=== PATIENT | female | born 1985 | race Caucasian/White ===

== ENCOUNTER → 2022-01-20 | Outpatient (CLI) | payer OTHER ==
[2022-01-20 15:24] LABS: MEAN CORPUSCULAR HEMOGLOBIN 22.4 pg (27.0-33.0); MEAN CORPUSCULAR HGB CONC 29.4 g/dl (32.0-36.5); MEAN CORPUSCULAR VOLUME 76.1 fl (80.0-96.0); PLATELET COUNT, AUTOMATED 355 10^3/uL (150-450); RED BLOOD COUNT 4.47 10^6/uL (4.00-5.40); WHITE BLOOD COUNT 9.2 10^3/uL (4.0-10.0)
[2022-01-20 15:50] LABS: ALT/SGPT 13 U/L (12-78); BILIRUBIN,TOTAL 0.2 MG/DL (0.2-1.0); CREATININE FOR GFR 0.49 MG/DL (0.55-1.30); GLOMERULAR FILTRATION RATE > 60.0 (>60); LDH LACTATE DEHYDROGENASE 130 U/L (84-246); URIC ACID 2.8 MG/DL (2.6-6.0)
[2022-01-20 16:41] LABS: HEPATITIS C VIRUS ABY INDEX 0.2 INDEX (<0.8); HIV 1&2 SCREEN CENTAUR NEGATIVE (NEGATIVE)
[2022-01-20 17:03] LABS: GC DNA AMPLIFICATION NEGATIVE (NEGATIVE)
[2022-01-20 17:22] LABS: TOTAL PROTEIN,RANDOM URINE 18.4 MG/DL (0.0-12.0)
== END ==
LOC: M PLALAB 12:22
PROVIDERS: ATTEND Advanced Practice Midwife
DX: Z34.91 Encounter for supervision of normal pregnancy, unspecified, first trimester (principal); O09.521 Supervision of elderly multigravida, first trimester

== ENCOUNTER → 2022-03-23 | Outpatient (CLI) | payer OTHER | LOC: M WHC 11:35 | PROVIDERS: ATTEND Obstetrics & Gynecology | DX: O09.522 Supervision of elderly multigravida, second trimester (principal); Z3A.20 20 weeks gestation of pregnancy ==

== ENCOUNTER → 2022-06-08 | Outpatient (CLI) | payer OTHER ==
[2022-06-08 13:21] LABS: HEMATOCRIT 28.5 % (36.0-47.0); HEMOGLOBIN 7.7 g/dl (12.0-15.5); MEAN CORPUSCULAR HEMOGLOBIN 19.2 pg (27.0-33.0); MEAN CORPUSCULAR VOLUME 71.1 fl (80.0-96.0); PLATELET COUNT, AUTOMATED 425 10^3/uL (150-450); RED BLOOD COUNT 4.01 10^6/uL (4.00-5.40); WHITE BLOOD COUNT 14.3 10^3/uL (4.0-10.0)
== END ==
LOC: M PLALAB 10:22
PROVIDERS: ATTEND Obstetrics & Gynecology
DX: O09.529 Supervision of elderly multigravida, unspecified trimester (principal)

== ENCOUNTER 2022-06-30 08:32 | Outpatient (CLI) | payer OTHER ==
[~2022-06-30] VITALS: Ht 167.6 cm; Wt 100.0 kg
[~2022-06-30 08:32] MED LIST: IRON SUCROSE 500 MG in NS 250 ML OVER 4 HRS IV ONE
[2022-06-30 08:35] VITALS: BP 167/79
[2022-06-30] MEDS ORDERED: ECOT81TA5 PO (09:14)
[2022-06-30] MEDS ORDERED: PREN1CHW6 PO (09:14)
[2022-06-30] MEDS ORDERED: FIOR1CAP PO (09:14)
[2022-06-30 10:00] VITALS: BP 131/78
[2022-06-30 10:20] VITALS: BP 168/88
== END 2022-06-30 10:20 | disposition home or self-care (01) ==
LOC: M INFU 08:32
PROVIDERS: ATTEND Obstetrics & Gynecology
DX: D64.9 Anemia, unspecified (principal)
CPT/HCPCS: 96365; J1756

== ENCOUNTER 2022-06-30 10:25 | Outpatient (CLI) | payer OTHER ==
[~2022-06-30 10:25] MED LIST changes: +ECOT81TA5 PO; +FIOR1CAP PO; -IRON SUCROSE 500 MG in NS 250 ML OVER 4 HRS IV ONE; +PREN1CHW6 PO
[2022-06-30 10:54] VITALS: BP 209/115
[2022-06-30 10:56] VITALS: BP 170/84
[2022-06-30 11:11] VITALS: BP 150/83
[2022-06-30 11:27] VITALS: BP 132/76
[2022-06-30 11:41] VITALS: BP 135/73
[2022-06-30 12:02] LABS: HEMATOCRIT 24.8 % (36.0-47.0); MEAN CORPUSCULAR HEMOGLOBIN 18.9 pg (27.0-33.0); MEAN CORPUSCULAR HGB CONC 27.8 g/dl (32.0-36.5); MEAN CORPUSCULAR VOLUME 67.9 fl (80.0-96.0); PLATELET COUNT, AUTOMATED 341 10^3/uL (150-450); RED BLOOD COUNT 3.65 10^6/uL (4.00-5.40)
[2022-06-30 12:11] LABS: HEMOGLOBIN 6.9 g/dl (12.0-15.5)
[2022-06-30 12:25] LABS: ALT/SGPT 10 U/L (12-78); BILIRUBIN,TOTAL 0.3 MG/DL (0.2-1.0); CREATININE FOR GFR 0.45 MG/DL (0.55-1.30); GLOMERULAR FILTRATION RATE > 60.0 (>60); LDH LACTATE DEHYDROGENASE 162 U/L (84-246)
[2022-06-30 12:39] LABS: TOTAL PROTEIN,RANDOM URINE 14.7 MG/DL (0.0-12.0)
== END 2022-06-30 13:00 | disposition home or self-care (01) ==
LOC: M LDO 10:25
PROVIDERS: ATTEND Advanced Practice Midwife
DX: O60.03 Preterm labor without delivery, third trimester (principal); O99.013 Anemia complicating pregnancy, third trimester; D50.9 Iron deficiency anemia, unspecified; O09.513 Supervision of elderly primigravida, third trimester; Z3A.34 34 weeks gestation of pregnancy
CPT/HCPCS: 36415; 59025; 82247; 82565; 82570; 83615; 84156; 84450; 84460; 84550; 85027; G0378; G0463

== ENCOUNTER 2022-07-02 14:25 | Outpatient (CLI) | payer OTHER ==
[~2022-07-02] VITALS: Ht 167.6 cm; Wt 100.0 kg
[2022-07-02] VITALS (9 sets, daily range): BP systolic 120–133; BP diastolic 60–77
[~2022-07-02 14:25] MED LIST changes: +ACETAMINOPHEN 500 MG TAB PO PRN; +diphenhydrAMINE 25MG CAP PO PRN
[2022-07-02 22:19] LABS: HEMATOCRIT 29.4 % (36.0-47.0); HEMOGLOBIN 8.4 g/dl (12.0-15.5); MEAN CORPUSCULAR HEMOGLOBIN 20.2 pg (27.0-33.0); MEAN CORPUSCULAR HGB CONC 28.6 g/dl (32.0-36.5); MEAN CORPUSCULAR VOLUME 70.8 fl (80.0-96.0); PLATELET COUNT, AUTOMATED 352 10^3/uL (150-450); RED BLOOD COUNT 4.15 10^6/uL (4.00-5.40); WHITE BLOOD COUNT 15.4 10^3/uL (4.0-10.0)
== END 2022-07-02 22:32 ==
LOC: M INFU 14:25 → M MSPAV 18:22 → M INFU 22:32
PROVIDERS: ATTEND Advanced Practice Midwife
DX: D64.9 Anemia, unspecified (principal)
CPT/HCPCS: 36415; 36430; 36592; 85027; 86850; 86900; 86901; 86920; P9016

== ENCOUNTER → 2022-07-12 | Outpatient (REF) | payer OTHER ==
[~2022-07-12] MED LIST changes: -ACETAMINOPHEN 500 MG TAB PO PRN; -diphenhydrAMINE 25MG CAP PO PRN
== END ==
LOC: M SFHCWAGY 13:11
PROVIDERS: ATTEND Advanced Practice Midwife
DX: Z36.85 Encounter for antenatal screening for Streptococcus B (principal)

== ENCOUNTER 2022-08-04 11:31 | Inpatient (IN) | payer OTHER ==
[~2022-08-04] VITALS: Ht 167.6 cm; Wt 104.2 kg
[2022-08-04] VITALS (20 sets, daily range): BP systolic 97–148; BP diastolic 46–88
[2022-08-04] MEDS ORDERED: OXYTOCIN DRIP 30 UNITS in IV 1 EA IV PRN ×4 (12:15)
[2022-08-04] MEDS ORDERED: TRANEXAMIC ACID INJection 1,000 MG in NS 100 ML IV PRN (12:15)
[2022-08-04] MEDS ORDERED: CARBOPROST TROMETHAMINE 250 MCG/ML AMP IM PRN (12:15)
[2022-08-04] MEDS ORDERED: OXYTOCIN INJ 10 UNITS/ML VIAL (J2590) IM PRN (12:15)
[2022-08-04] MEDS ORDERED: LIDOCAINE 1% MDV 20ML VIAL INFIL PRN (12:15)
[2022-08-04] MEDS ORDERED: OXYTOCIN DRIP 30 UNITS in IV 1 EA IV SCH ×2 (13:00→21:25)
[2022-08-04] MEDS ORDERED: LR 1,000 ML IV SCH (13:00)
[2022-08-04 13:55] LABS: HEMATOCRIT 32.9 % (36.0-47.0); HEMOGLOBIN 9.3 g/dl (12.0-15.5); MEAN CORPUSCULAR HEMOGLOBIN 20.3 pg (27.0-33.0); MEAN CORPUSCULAR HGB CONC 28.3 g/dl (32.0-36.5); MEAN CORPUSCULAR VOLUME 71.8 fl (80.0-96.0); PLATELET COUNT, AUTOMATED 333 10^3/uL (150-450); RED BLOOD COUNT 4.58 10^6/uL (4.00-5.40); WHITE BLOOD COUNT 12.7 10^3/uL (4.0-10.0)
[2022-08-04 14:29] LABS: ALT/SGPT 9 U/L (12-78); BILIRUBIN,TOTAL 0.4 MG/DL (0.2-1.0); CREATININE FOR GFR 0.46 MG/DL (0.55-1.30); GLOMERULAR FILTRATION RATE > 60.0 (>60); LDH LACTATE DEHYDROGENASE 228 U/L (84-246); URIC ACID 3.1 MG/DL (2.6-6.0)
[2022-08-04] MEDS ORDERED: HOME MED LIST COMPLETE! XX SCH (15:50)
[2022-08-04 17:24] LABS: TOTAL PROTEIN,RANDOM URINE 24.6 MG/DL (0.0-12.0)
[2022-08-04] MEDS ORDERED: RHOGAM 300 MCG (1500 IU) INJ (J2790) IM SCH (21:25)
[2022-08-04] MEDS ORDERED: DOCUSATE SODIUM 100MG CAPSULE PO PRN (21:25)
[2022-08-04] MEDS ORDERED: IBUPROFEN 600MG TAB PO PRN (21:25)
[2022-08-04] MEDS ORDERED: ACETAMINOPHEN TAB 650MG DOSE (2X325MG) PO PRN (21:25)
[2022-08-04] MEDS ORDERED: DIBUCAINE 1% OINTMENT 30GM TOP PRN (21:25)
[2022-08-04] MEDS: IBUPROFEN 800 MG TAB PO PRN (21:49)
[2022-08-05 06:00] VITALS: BP 118/72
[2022-08-05] MEDS: PRENATAL VITAMINS CHEWABLE TABLET PO SCH (09:52)
[2022-08-05] MEDS: ACETAMINOPHEN 500 MG TAB PO PRN ×2 (09:52→21:07)
[2022-08-05 10:00] VITALS: BP 131/76
[2022-08-05 14:00] VITALS: BP 128/76
[2022-08-05] MEDS: IBUPROFEN 800 MG TAB PO PRN (15:56)
[2022-08-05 19:00] VITALS: BP 134/74
[2022-08-06] MEDS: IBUPROFEN 800 MG TAB PO PRN ×2 (01:13→10:10)
[2022-08-06 05:38] VITALS: BP 134/81
[2022-08-06] MEDS: PRENATAL VITAMINS CHEWABLE TABLET PO SCH (08:11)
[2022-08-06] MEDS ORDERED: MEASLES,MUMPS,RUBELLA VACCINE INJ (MMR-II) (90707) SC.IMMUN ONE (09:00)
[2022-08-06] MEDS ORDERED: ACET-683 PO (12:20)
[2022-08-06] MEDS ORDERED: IBUP80TA PO (12:20)
[2022-08-06] MEDS ORDERED: COLA100C5 PO (12:20)
== END 2022-08-06 14:43 | disposition home or self-care (01) | DRG 807 ==
LOC: M LDI 11:31 → M OBS 08-05 06:43
PROVIDERS: ADMIT Advanced Practice Midwife; ATTEND Advanced Practice Midwife
PROC: 10E0XZZ Delivery of Products of Conception, External Approach (ICD-10-PCS; principal; 2022-08-04)
PROC: 3E033VJ Introduction of Other Hormone into Peripheral Vein, Percutaneous Approach (ICD-10-PCS; 2022-08-04)
PROC: 10907ZC Drainage of Amniotic Fluid, Therapeutic from Products of Conception, Via Natural or Artificial Opening (ICD-10-PCS; 2022-08-04)
DX: O13.4 Gestational [pregnancy-induced] hypertension without significant proteinuria, complicating childbirth (principal); Z37.0 Single live birth; Z3A.39 39 weeks gestation of pregnancy; O09.523 Supervision of elderly multigravida, third trimester; D64.9 Anemia, unspecified; O99.02 Anemia complicating childbirth

== ENCOUNTER → 2023-01-24 | Outpatient (REF) | payer OTHER ==
[~2023-01-24] MED LIST changes: +ACET-683 PO; +COLA100C5 PO; +IBUP80TA PO
== END ==
LOC: M SFHCWAGY 12:56
PROVIDERS: ATTEND Advanced Practice Midwife
DX: Z12.4 Encounter for screening for malignant neoplasm of cervix (principal); R87.610 Atypical squamous cells of undetermined significance on cytologic smear of cervix (ASC-US)
CPT/HCPCS: 87624; G0123; G0463